=== PATIENT | male | born 1955 | race Caucasian/White ===

== ENCOUNTER → 2018-01-09 | Outpatient (CLI) | payer OTHER ==
[2018-01-09 19:24] LABS: Free Thyroxine 0.85 ng/dL (0.70-1.60)
[2018-01-09 19:57] LABS: Thyroid Stimulating Hormone 1.47 uIU/mL (0.360-4.800); Triiodothyronine, Free 2.51 pg/mL (2.18-3.98)
== END | disposition home or self-care (01) ==
LOC: LAB 13:55 → LAB SHORT 13:55
PROVIDERS: Nurse Practitioner Family
DX: Z13.29 Encounter for screening for other suspected endocrine disorder (principal); E10.9 Type 1 diabetes mellitus without complications; I10 Essential (primary) hypertension
CPT/HCPCS: 82607; 82746; 84439; 84443; 84481

== ENCOUNTER 2021-03-10 10:37 | Inpatient (IN) | payer MEDICARE, OTHER ==
[~2021-03-10] VITALS: Ht 172.7 cm; Wt 77.1 kg
[2021-03-10] MEDS ORDERED: NEURONTIN300 MG PO (10:41)
[2021-03-10] MEDS ORDERED: ZESTRIL40 M1 PO (10:41)
[2021-03-10] MEDS ORDERED: SEMGLEE PE100 UNIT/1 SC (10:42)
[2021-03-10] MEDS ORDERED: PRAVASTATIN SOD40 MG PO (10:42)
[2021-03-10] MEDS ORDERED: AMLODIPINE BESY10 MG PO (10:42)
[2021-03-10 11:03] LABS: BASOPHILS ABSOLUTE AUTO 0.02 K/mm3 (0.00-0.23); BASOPHILS PERCENT AUTO 0 % (0-2); EOSINOPHILS ABSOLUTE AUTO 0.03 K/mm3 (0.00-0.68); EOSINOPHILS PERCENT AUTO 0 % (0-6); Hematocrit 37.9 % (37.0-53.0); Hemoglobin 13.4 g/dL (13.5-17.5); IMMATURE GRAN ABSOLUTE AUTO 0.05 K/mm3 (0.00-0.10); IMMATURE GRAN PERCENT AUTO 0 % (0-1); LYMPHOCYTES ABSOLUTE AUTO 0.79 K/mm3 (0.84-5.20); LYMPHOCYTES PERCENT AUTO 7 % (21-46); MONOCYTES ABSOLUTE AUTO 1.04 K/mm3 (0.16-1.47); MONOCYTES PERCENT AUTO 9 % (4-13); Mean Corpuscular HGB 34.2 pg (26.0-34.0); Mean Corpuscular HGB Conc 35.4 g/dL (31.5-36.5); Mean Corpuscular Volume 97 fL (80-100); Mean Platelet Volume 9.7 fL (9.1-12.4); NEUTROPHILS PERCENT AUTO 83 % (41-73); Platelet Count 226 K/mm3 (150-400); RDW Coefficient Variation 12.9 % (11.7-14.2); RDW Standard Deviation 46.3 fL (35.1-46.3); Red Blood Cell Count 3.92 M/mm3 (4.30-5.90); White Blood Cell Count 11.33 K/mm3 (4.00-11.30)
[2021-03-10 11:18] LABS: Alanine Aminotransfer (ALT/SGP 33 U/L (12-78); Albumin, Blood 3.8 g/dL (3.4-5.0); Albumin/Globulin Ratio 1.4 (0.8-1.8); Alk Phos 92 U/L (50-136); Anion Gap 8 mmol/L (6-16); Aspartate Aminotrans (AST/SGOT 22 U/L (12-37); Bilirubin, Total 0.6 mg/dL (0.1-1.0); Blood Urea Nitrogen 10 mg/dL (8-24); Bun/Creatinine Ratio 18.1 (12.0-20.0); CO2, Blood 23 mmol/L (21-32); Calcium, Blood 8.8 mg/dL (8.5-10.1); Chloride, Blood 103 mmol/L (98-108); Creatinine, Blood 0.55 mg/dL (0.60-1.20); Globulin, Blood 2.8 g/dL (2.2-4.0); Glomerular Filtration Rate >60 (60-); Glucose, Blood 133 mg/dL (70-99); Potassium, Blood 3.7 mmol/L (3.5-5.5); Sodium, Blood 134 mmol/L (136-145); Total Protein, Blood 6.6 g/dL (6.4-8.2)
[2021-03-10 13:50] LABS: SARS-Cov-2 (COVID-19) PCR, MMC NEGATIVE (NEGATIVE)
--- NOTE | 2021-03-10 17:39 | NUR ---
PATIENT BLOOD SUGAR WAS CHECKED AND WAS 40. OJ GIVEN, RECHECKED BLOOD SUGAR WAS 34, NEW ORDER RECIEVED, D50 HALF AMP GIVEN IV, RECHECKED BLOOD SUGAR RESULT OF 129 NOTED. NEW ORDER FOR PATIENT TO HAVE A MEAL TRAY FOR SUPPER. PATIENT CURRENTLY SITTING UP IN BED EATING SUPPER. NO SIGNS OR SYMPTOMS ACUTE DISTRESS NOTED. CALL LIGHT AND WATER IN EASY REACH. ABLE TO MAKE NEED AND WANTS KNOWN. WILL CONTINUE TO MONITOR.
--- NOTE | 2021-03-11 07:24 | NUR ---
SHIFT SUMMARY PT ADMITTED FOR L HIP FX DUE TO [facility] FALL. AOX4. ANTICIPATING SURG PROCEDURE FOR TOTAL L HIP ARTHRO WITH DR. LANE TODAY. VSS. CBG RAN LOW THIS MORNING AT 0300 AND 0600 AM. HYPOGYLCEMIA PROTOCOL ORDER WITH DEXTROSE 50% 25ML GIVEN X2. CALLED DR. ALEGRIA AND NOTIFIED OF THE HYPOGLYCEMIC EPISODES. NEW ORDER FOR D5NS AT 75ML/HR ADDED ON CHART. PT WAS ASYMPTOMATIC DURING THIS EPISODES. HE IS ALERT AND ORIENTED X4. VSS. PT ALSO REPORTS PAIN ON L HIP. PAIN MANAGED WITH ARLET 5MG. NPO AFTER MIDNIGHT. PT ALSO DENIES NUMBNESS AND TINGLING SENSATION. BEDREST. CALL LIGHT WITHIN REACH. REPORT GIVEN TO AM NURSE.
--- NOTE | 2021-03-11 14:16 | NUR ---
ABRASION NOTED TO BACK OF LEFT UPPER ARM. AREA COVERED WITH EMULSION DRESSING AND KERLEX. PT DENIES ISSUES TO ARM WITH BLOOD PRESSURE CUFF. DR. PEREIRA AND DEBBY RN NOTIFED OF ARM AND THE DRESSING. PT VERBALIZED OKAY. 2 IV'S RUNNING IN R ARM.
--- NOTE | 2021-03-11 17:57 | NUR ---
PATIENT ARRIVED BACK TO ROOM AT 1700, AWAKE, ALERT AND ORIENTED X 4. ABLE TO MAKE NEEDS AND WANTS KNOWN. ASKING FOR FOOD AND DRINK. CURRENTLY EATING DINNER AND TOLERATING WELL. CALL LIGHT AND WATER IN EASY REACH. NO COMPLAINTS OF PAIN AT THIS TIME. NO SIGNS OR SYMPTOMS ACUTE DISTRESS NOTED AT THIS TIME. WILL CONTINUE TO MONITOR.
[2021-03-12 03:48] LABS: Hematocrit 32.3 % (37.0-53.0); Hemoglobin 11.3 g/dL (13.5-17.5); Mean Corpuscular HGB 34.6 pg (26.0-34.0); Mean Corpuscular Volume 99 fL (80-100); Platelet Count 169 K/mm3 (150-400); RDW Coefficient Variation 12.8 % (11.7-14.2); RDW Standard Deviation 46.2 fL (35.1-46.3); Red Blood Cell Count 3.27 M/mm3 (4.30-5.90); White Blood Cell Count 11.41 K/mm3 (4.00-11.30)
[2021-03-12 04:04] LABS: Albumin, Blood 2.6 g/dL (3.4-5.0); Anion Gap 5 mmol/L (6-16); Blood Urea Nitrogen 14 mg/dL (8-24); Bun/Creatinine Ratio 21.2 (12.0-20.0); CO2, Blood 25 mmol/L (21-32); Calcium, Blood 7.4 mg/dL (8.5-10.1); Chloride, Blood 105 mmol/L (98-108); Creatinine, Blood 0.66 mg/dL (0.60-1.20); Glomerular Filtration Rate >60 (60-); Glucose, Blood 269 mg/dL (70-99); Phosphorus, Blood 3.6 mg/dL (2.5-4.9); Potassium, Blood 4.4 mmol/L (3.5-5.5); Sodium, Blood 135 mmol/L (136-145)
--- NOTE | 2021-03-12 04:13 | NUR ---
PATIENT REFUSED ICE TO BE PUT IN THE CRYPTO MACHINE AND ALSO REFUSED TO WEAR SCDS. WILL CONTINUE TO ENCOURAGE PATIENT TO USE SCD AND WILL CONTINUE TO MONITOR THE SAFTEY OF THE PATIENT.
--- NOTE | 2021-03-12 18:23 | NUR ---
PATIENT WORKED WITH BOTH PT AND OT TODAY AND DID WELL. SAT UP IN CHAIR FOR SOME OF THE DAY. TOLERATED WELL. NO SIGNS OR SYMPTOMS ACUTE DISTRESS NOTED. CALL LIGHT AND WATER IN EASY REACH. ABLE TO MAKE NEEDS AND WANTS KNOWN. WILL MONITOR.
[2021-03-13 04:10] LABS: Hematocrit 28.5 % (37.0-53.0); Hemoglobin 10.1 g/dL (13.5-17.5); Mean Corpuscular HGB 34.7 pg (26.0-34.0); Mean Corpuscular HGB Conc 35.4 g/dL (31.5-36.5); Mean Corpuscular Volume 98 fL (80-100); Platelet Count 171 K/mm3 (150-400); RDW Coefficient Variation 12.7 % (11.7-14.2); RDW Standard Deviation 46.1 fL (35.1-46.3); Red Blood Cell Count 2.91 M/mm3 (4.30-5.90); White Blood Cell Count 8.46 K/mm3 (4.00-11.30)
[2021-03-13 04:31] LABS: Albumin, Blood 2.7 g/dL (3.4-5.0); Anion Gap 5 mmol/L (6-16); Blood Urea Nitrogen 13 mg/dL (8-24); Bun/Creatinine Ratio 22.3 (12.0-20.0); CO2, Blood 25 mmol/L (21-32); Calcium, Blood 7.8 mg/dL (8.5-10.1); Chloride, Blood 105 mmol/L (98-108); Creatinine, Blood 0.58 mg/dL (0.60-1.20); Glomerular Filtration Rate >60 (60-); Glucose, Blood 202 mg/dL (70-99); Phosphorus, Blood 2.5 mg/dL (2.5-4.9); Potassium, Blood 3.8 mmol/L (3.5-5.5); Sodium, Blood 135 mmol/L (136-145)
--- NOTE | 2021-03-13 06:13 | NUR ---
PATIENT REQUESTED PAIN MEDS X 1. PATIENT REQUESTED THAT SCD'S BE REMOVED AT 10:00PM SO THAT HE COULD SLEEP. THE NURSE EXPLAINED WHY THE SCDS SHOULD BE USED, BUT PATIENT STILL REFUSED STATING THAT HE WILL BE GETTING THE LOVENOX SHOT. WILL CONTINUE TO ENCOURAGE PATIENT TO USE THE SCDS AND WILL CONTINUE TO MONITOR PATIENT FOR SAFETY.
--- NOTE | 2021-03-13 09:22 | NUR ---
PT DECLINED ICE THERAPY. STATES HE CAN'T TOLERATE IT AND IT IS TOO MUCH FOR HIM.
--- NOTE | 2021-03-13 15:58 | NUR ---
REASSESSED PT'S ABRASIONS ON LEFT UPPER ARM AND FOREARM. SCABS PRESENT AND CLEAN. REMOVED GAUZE AT THIS TIME.
--- NOTE | 2021-03-13 16:57 | NUR ---
DR. ALEGRIA NOTIFIED THAT PT'S RECOMMENDATION FROM THERAPY HAS BEEN CHANGED TO HOME WITH HOME HEALTH. MESSAGE LEFT FOR DR. ALEGRIA.
--- NOTE | 2021-03-13 17:16 | NUR ---
INSULIN PT REFUSED HUMALOG X 2 TODAY. DISCUSSED WITH PT IMPORTANCE OF MAINTAINING BS BELOW 200 TO REDUCE CHANCE OF INFECTION. PT AWARE BUT CONFIDENT IN HIS ABILITY TO MAINTAIN HIS BS AND STATES HIS EATING SCHEDULE IS MUCH DIFFERENT THAN OURS WHICH IS AFFECTING HIS BS NUMBERS.
--- NOTE | 2021-03-13 17:51 | NUR ---
SHIFT SUMMARY POD 2 FOR A L TOTAL HIP ARTHOPLASTY. PT IS A&O X4. THERE IS A AQUACEL TO THE L HIP INCISION SITE AND IT IS C/D/I. PT'S PAIN HAS BEEN MINIMAL AND PT ONLY REQUESTS TYLENOL PER EMAR. PT WORKED WITH PHYSICAL THERAPY TODAY AND WENT ON A WALK WELL AND TOLERATED BOTH WELL. HE IS ANXIOUS TO BE MOVING. HE DID GET UP ON HIS OWN WITHOUT ASKING FOR ASSISTANCE AND WE EXPLAINED TO HIM THE IMPORTANCE OF HAVING SOMEONE THE NEXT TIME HE GOT UP. PT HAS BEEN COMPLIANT WITH ASKING FOR ASSISTANCE SINCE. PT HAS NOT REPORTED ANY N/V. AMBULATES WITH A FWW WITH GAITBELT. TOLERATING FOOD AND FLUIDS WELL. PT HAS REFUSED X2 HUMALOG ADMINISTRATION. DISCUSSED THE IMPORTANCE OF MAINTAINING HIS BS TO AN ACCEPTABLE LEVEL AND THE IMPORTANCE OF THIS TO AVOID INFECTION. PT IS AWARE AND IS CONFIDENT IN HIS ABILITY TO CONTROL HIS BS. CALL LIGHT IS WITHIN REACH.
--- NOTE | 2021-03-13 23:32 | NUR ---
PATIENT REFUSES TO USE THE SCDS. THE NURSE WILL CONTINUE TO ENCOURAGE PATIENT TO USE THE SCDS.
[2021-03-14] MEDS ORDERED: Colace100 MG PO (11:56)
[2021-03-14] MEDS ORDERED: ACET325 PO (11:56)
[2021-03-14] MEDS ORDERED: ENOX40I SC (11:57)
--- NOTE | 2021-03-14 12:35 | NUR ---
HOME HEALTH PT HAD NO PREFERENCE ON HOME HEALTH. [facility] CALLED PRESCRIPTIONS INTO [employer] [facility].
--- NOTE | 2021-03-14 12:49 | NUR ---
DISCHARGE INSTRUCTIONS GIVEN TO PATIENT AT THIS TIME. PATIENT VERBALZIED UNDERSTANDING. HOME HEALTH FAXED WITH ORDERS FOR HOME HEALTH. PATIENT TO TAKE THE WALKER IN HIS ROOM UNTIL HE GETS HIS OWN. PATIENT HAS A FREIND WHO WILL BE MEETING HIM AT HIS HOUSE TO HELP HIM GET INTO HIS TRAILER. PATIENT WILL BE TAKING A TAXI HOME, AWAITING TAXI ARRIVAL. NO SIGNS OR SYMPTOMS ACUTE DISTRESS NOTED. ABLE TO MAKE NEEDS AND WANTS KNOWN. IV'S TAKEN OUT WITH NO ISSUES NOTED.
== END 2021-03-14 13:00 | disposition home health service (06) | DRG 522 ==
LOC: ER 10:37 → SURS 12:43
PROVIDERS: Emergency Medicine; Internal Medicine; Orthopaedic Surgery; ADMIT Family Medicine
PROC: 0SRS03A Replacement of Left Hip Joint, Femoral Surface with Ceramic Synthetic Substitute, Uncemented, Open Approach (ICD-10-PCS; principal; 2021-03-11 14:30)
DX: S72.092A Other fracture of head and neck of left femur, initial encounter for closed fracture (principal); Z20.822 Contact with and (suspected) exposure to COVID-19; I10 Essential (primary) hypertension; E11.649 Type 2 diabetes mellitus with hypoglycemia without coma; E78.5 Hyperlipidemia, unspecified; Z79.899 Other long term (current) drug therapy; Z79.4 Long term (current) use of insulin; W19.XXXA Unspecified fall, initial encounter
CPT/HCPCS: 36415; 72170; 73502; 80053; 80069; 82947; 85025; 85027; 93005; 93010; 97110; 97116; 97162; 97166; 97530; 97535; 99285-25; A9270; C1713; C1776; J0171; J0690; J0735; J1100; J1650; J1815; J1885; J2405; J2704; J2795; J3010; J7030; J7042; J7120; U0004